=== PATIENT | female | born 1995 | race Two or more races ===

== ENCOUNTER 2019-04-18 15:41 | Emergency (ER) | payer OTHER ==
[~2019-04-18] VITALS: Ht 162.6 cm; Wt 72.6 kg
[2019-04-18 15:56] VITALS: BP 118/70
[2019-04-18] MEDS ORDERED: NKM (15:56)
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
[2019-04-18 18:33] VITALS: BP 120/70
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
== END 2019-04-18 18:32 | disposition home or self-care (01) ==
LOC: EMR 17:03
DX: M54.2 Cervicalgia (principal); M54.9 Dorsalgia, unspecified; R51 Headache
CPT/HCPCS: 72020; 72040; 81025; 99284